=== PATIENT | male | born 1940 | race Caucasian/White ===

== ENCOUNTER 2019-04-12 19:29 | Emergency (ER) | payer MEDICARE ==
[2016-04-27 15:36] VITALS: Wt 97.5 kg
[~2019-04-12 19:29] MED LIST: ACE3 PO; ASPI-757 PO; BEN10 PO; CEP500 PO; HYDR-318 PO; LEVO50TA80 PO; LEVO75TA73 PO; [UNRECOGNIZED DRUG - OTHER] PO
--- NOTE | 2019-04-12 19:33 | ER Report ---
History and Physical Time Seen By MD: 19:30 HPI/ROS CHIEF COMPLAINT: Cough and slight shortness of breath HISTORY OF PRESENT ILLNESS: This is an 79-year-old male who presents to the emergency department for a cough and some shortness of breath. Patient states that he's had a cough over the last week progressively getting worse, it is productive. States that he's had some chills at home, subjectively has had fevers, states it was increasingly difficult to sleep last night because he was coughing which caused his shortness of breath. No history of asthma. No recent travel outside of this region. He denies chest pain. No nausea or vomiting. No rashes. No headache. REVIEW OF SYSTEMS: Constitutional: As above. Eyes: No discharge. ENT: No sore throat. Cardiovascular: No chest pain, no palpitations. Respiratory: As above. Gastrointestinal: No abdominal pain, no vomiting. Genitourinary: No hematuria. Musculoskeletal: No back pain. Skin: No rashes. Neurological: No headache. Allergies: Coded Allergies: No Known Drug Allergies (Unverified , 04/12/19) Home Meds Active Scripts Benzonatate (BENZONATATE) 200 Mg Capsule, 200 MG PO TID PRN for COUGH, #15 CAP Prov:АННА AMANDA [facility]- 04/12/19 Prednisone (PREDNISONE) 20 Mg Tablet, 20 MG PO BID, #10 TAB Prov:АННА AMANDA [facility]- 04/12/19 Azithromycin 250 Mg Tab (AZITHROMYCIN 250 MG TAB) 250 Mg Tablet, 1 TAB PO QDAY, #4 TAB 1 tab a day until gone. Prov:АННА AMANDA [facility] 04/12/19 Reported Medications Levothyroxine Sodium (LEVOTHYROXINE SODIUM) 75 Mcg Tablet, 75 MCG PO QDAY, TAB 04/20/16 Benazepril Hcl 10 MG TAB (Lotensin 10 MG TAB) 10 Mg Tab, 10 MG PO QDAY 09/24/12 Discontinued Reported Medications Hydrocodone/Acetaminophen (Lortab 7.5-325 mg Tablet) 1 Each Tablet, 1-2 TAB PO Q4-6H PRN for PAIN, #80 04/29/16 [Fe Gluconate] No Conflict Check, 375 MG PO BIDBS, #60 TAKE WITH FOOD 04/29/16 Discontinued Scripts Aspirin (ASPIRIN) 325 Mg Tablet, 325 MG PO QDAY, #0 Take for 30 days after surgery for blood clot prevention Prov:KRISTA SIMPSON MD 04/29/16 Past Medical/Surgical History The patient has a past medical and surgical history of hypothyroidism, wears glasses, hard hearing, hypertension, GERD, appendectomy, arthritis, clavicle f racture with surgery, skin cancer, squamous cell carcinoma with excision. Reviewed Nurses Notes: Yes Hx Smoking: No Smoking Status: Never Smoker Exposure to Second Hand Smoke?: No Hx Alcohol Use: Yes Constitutional Vital Sign - Last 24 Hours 04/12/19 04/12/19 04/12/19 04/12/19 19:35 19:44 19:56 19:56 Temp 98.3 Pulse 81 77 72 Resp 28 17 18 B/P (MAP) 148/78 Pulse Ox 91 86 89 O2 Delivery Room Air Room Air 04/12/19 04/12/19 04/12/19 04/12/19 19:59 20:00 20:02 20:14 Pulse 75 71 ??? Resp 24 18 23 B/P (MAP) 126/69 (88) Pulse Ox 96 91 04/12/19 04/12/19 04/12/19 04/12/19 20:29 20:30 20:44 20:45 Pulse 72 69 68 Resp 18 12 18 B/P (MAP) 123/62 (82) Pulse Ox 87 87 04/12/19 04/12/19 04/12/19 04/12/19 20:45 20:49 20:54 20:59 Pulse 68 70 75 Resp 14 12 34 Pulse Ox 89 98 98 89 O2 Delivery Room Air 04/12/19 04/12/19 04/12/19 21:00 21:03 21:04 Pulse 75 77 Resp 18 38 B/P (MAP) 111/72 (85) Intake and Output 04/12/19 04/12/19 04/13/19 15:01 23:01 07:01 Intake Total 1000 ml Balance 1000 ml Physical Exam General Appearance: The patient is alert, has no immediate need for airway protection and no signs of toxicity. Eyes: Pupils equal and round no pallor or injection. ENT, Mouth: Mucous membranes are moist. Respiratory: Diminished lung sounds throughout, an x-ray wheezes in the bases bilaterally, mildly coarse in the bases. Cardiovascular: Regular rate and rhythm. No murmurs, clicks or rubs. Gastrointestinal: Abdomen is soft and non tender, no masses, bowel sounds normal. Neurological: Alert and oriented 4. Moving all extremities. Following all commands. No focal neuro deficits. Skin: Warm and dry, no rashes. Musculoskeletal: Neck is supple non tender. Extremities are nontender, nonswollen and have full range of motion. DIFFERENTIAL DIAGNOSIS: After history and physical exam differential diagnosis was considered for bronchitis, pneumonia, pulmonary embolus, myocardial i nfarction, seasonal allergies, lung mass. Medical Decision Making Data Points Result Diagram: 04/12/19193704/12/191937 Laboratory Hematology Test 04/12/19 19:38 Red Blood Count 4.82 M/uL (4.00-5.60) Mean Corpuscular Volume 89.6 fL (80.0-96.0) Mean Corpuscular Hemoglobin 31.2 pg (26.0-33.0) Mean Corpuscular Hemoglobin Concent 34.8 g/dL (32.0-36.0) Red Cell Distribution Width 14.5 % (11.5-14.5) Mean Platelet Volume 7.9 fL (7.2-11.1) Neutrophils (%) (Auto) 66.2 % (39.4-72.5) Lymphocytes (%) (Auto) 23.4 % (17.6-49.6) Monocytes (%) (Auto) 6.7 % (4.1-12.4) Eosinophils (%) (Auto) 3.0 % (0.4-6.7) Basophils (%) (Auto) 0.7 % (0.3-1.4) Nucleated RBC Relative Count (auto) 0.1 /100WBC Neutrophils # (Auto) 5.7 K/uL (2.0-7.4) Lymphocytes # (Auto) 2.0 K/uL (1.3-3.6) Monocytes # (Auto) 0.6 K/uL (0.3-1.0) Eosinophils # (Auto) 0.3 K/uL (0.0-0.5) Basophils # (Auto) 0.1 K/uL (0.0-0.1) Nucleated RBC Absolute Count (auto) 0.01 K/uL Sodium Level 139 mmol/L (137-145) Potassium Level 4.5 mmol/L (3.5-5.0) Chloride Level 99 mmol/L (98-107) Carbon Dioxide Level 29 mmol/L (22-30) Blood Urea Nitrogen 21 mg/dl (9-21) Creatinine 1.40 mg/dl (0.66-1.25) Glomerular Filtration Rate Calc 48.6 Random Glucose 108 mg/dl (75-110) Calcium Level 9.0 mg/dl (8.4-10.2) Total Bilirubin 1.6 mg/dl (0.2-1.3) Aspartate Amino Transf (AST/SGOT) 32 U/L (0-35) Alanine Aminotransferase (ALT/SGPT) 37 U/L (0-56) Alkaline Phosphatase 71 U/L (0-126) Total Protein 7.5 g/dl (6.3-8.2) Albumin 4.4 g/dl (3.5-5.0) Chemistry Test 04/12/19 19:38 White Blood Count 8.6 k/uL (4.5-11.0) Red Blood Count 4.82 M/uL (4.00-5.60) Hemoglobin 15.0 g/dL (14.0-18.0) Hematocrit 43.2 % (42.0-52.0) Mean Corpuscular Volume 89.6 fL (80.0-96.0) Mean Corpuscular Hemoglobin 31.2 pg (26.0-33.0) Mean Corpuscular Hemoglobin Concent 34.8 g/dL (32.0-36.0) Red Cell Distribution Width 14.5 % (11.5-14.5) Platelet Count 214 K/uL (150-450) Mean Platelet Volume 7.9 fL (7.2-11.1) Neutrophils (%) (Auto) 66.2 % (39.4-72.5) Lymphocytes (%) (Auto) 23.4 % (17.6-49.6) Monocytes (%) (Auto) 6.7 % (4.1-12.4) Eosinophils (%) (Auto) 3.0 % (0.4-6.7) Basophils (%) (Auto) 0.7 % (0.3-1.4) Nucleated RBC Relative Count (auto) 0.1 /100WBC Neutrophils # (Auto) 5.7 K/uL (2.0-7.4) Lymphocytes # (Auto) 2.0 K/uL (1.3-3.6) Monocytes # (Auto) 0.6 K/uL (0.3-1.0) Eosinophils # (Auto) 0.3 K/uL (0.0-0.5) Basophils # (Auto) 0.1 K/uL (0.0-0.1) Nucleated RBC Absolute Count (auto) 0.01 K/uL Glomerular Filtration Rate Calc 48.6 Calcium Level 9.0 mg/dl (8.4-10.2) Total Bilirubin 1.6 mg/dl (0.2-1.3) Aspartate Amino Transf (AST/SGOT) 32 U/L (0-35) Alanine Aminotransferase (ALT/SGPT) 37 U/L (0-56) Alkaline Phosphatase 71 U/L (0-126) Total Protein 7.5 g/dl (6.3-8.2) Albumin 4.4 g/dl (3.5-5.0) EKG/Imaging EKG Interpretation 12 lead EKG: Time of EKG 1937. Rhythm: Sinus rhythm with a first-degree AV block, ventricular rate 76 bpm. NH interval 236. [place]: normal QRS: normal ST segments: No ST depression or elevation identified. Imaging PATIENT NAME: Jaime Quijano : 1940 MR: [id number] V: [id number] EXAM DATE: ORDERING PHYSICIAN: АННА AMANDA TECHNOLOGIST: Location: [facility] [place] Patient: Jaime Quijano : 1940 Visit/Account:[id number] Date of Sevice: 04/12/2019 2 VIEWS CHEST INDICATION: Cough and shortness breath for seven days. COMPARISON: 04/16/2016. FINDINGS: Cardiomediastinal silhouette and pulmonary vessels within normal limits. There is no focal infiltrate or lobar consolidation. There is no pneumothorax or pleural effusion. No nodule. Upper abdomen is unremarkable. No acute bony abnormality. Old right rib fractures. Previous internal fixation of the right clavicle fracture which is unchanged without acute sequelae. IMPRESSION: 1. No acute cardiopulmonary process. Report Dictated By: Porfirio Hunter at 04/12/2019 9:05 PM Report E-Signed By: Porfirio Hunter at 04/12/2019 9:06 PM WSN:[email or web address] ED Course/Re-evaluation Clinical Indication for ER IV: Hydration, IV Access ED Course The patient was admitted to room. A history and physical obtained. Differential diagnoses were considered. An IV was started. A CBC, CMP were obtained. A 1 L normal saline bolus was given. One DuoNeb was given, EKG showing sinus rhythm with 1st degree AV block otherwise unremarkable. Laboratory studies unremarkable. Although labs were normal, ekg normal and no concerning findings on your chest xray, the lungs sounds were very diminished and course, I am ayla ting for pneumonia. He was started on Azithromycin, prednisone and albuterol inhaler. Patient was agreeable with this plan of care and discharged home. Decision to Disposition Date: Apr 12, 2019 Decision to Disposition Time: 21:05 Depart Departure Latest Vital Signs Vital Signs Date Time Temp Pulse Resp B/P (MAP) Pulse Ox O2 Delivery O2 Flow Rate FiO2 04/12/19 21:04 77 38 04/12/19 21:00 111/72 (85) 04/12/19 20:59 89 04/12/19 20:45 Room Air 04/12/19 19:35 98.3 Impression: Primary Impression: Pneumonia Condition: Improved Disposition: HOME OR SELF-CARE Referrals: PASQUALE LE DO (PCP) 1 Week New Scripts Benzonatate (BENZONATATE) 200 Mg Capsule 200 MG PO TID PRN for COUGH, #15 CAP Prov: АННА AMANDAP- 04/12/19 Prednisone (PREDNISONE) 20 Mg Tablet 20 MG PO BID, #10 TAB Prov: АННА AMANDA [facility]- 04/12/19 Azithromycin 250 Mg Tab (AZITHROMYCIN 250 MG TAB) 250 Mg Tablet 1 TAB PO QDAY, #4 TAB 1 tab a day until gone. Prov: АННА AMANDA [facility]- 04/12/19 Patient Instructions: Bacterial Pneumonia (ED) Additional Instructions: As your symptoms have been getting worse, with some sweating at home, I am going to treat you for bacterial pneumonia. Take the medications as prescribed. Please follow up with your PCP first thing next week, Monday or Monday, for reevaluation. You will likely have a residual cough but should begin to improve in the next couple of days. Be sure to drink plenty of water. Get plenty of rest. Return to the ED for any other concerns or worsening symptoms. Problem Qualifiers Primary Impression: Pneumonia Pneumonia type: due to unspecified organism Laterality: unspecified laterality Lung location: unspecified part of lung Qualified Codes: J18.9 - Pneumonia, unspecified organism АННА AMANDA EXECUTIVE MEETING MANAGER-BC Apr 12, 2019 19:33
[2019-04-12] MEDS ORDERED: NS(*) 0.9% 1000 ML BAG 1,000 ML IV ONE (19:36)
[2019-04-12] MEDS ORDERED: ALBUTEROL/IPRATROPIUM 3 ML NEB NEB ONE ×2 (19:40→20:40)
--- NOTE | 2019-04-12 19:50 | EKG ---
[facility] PATIENT NAME: ADRIÁN SAMUELS : [id number] MR: [id number] V: [id number] EXAM DATE: ORDERING PHYSICIAN: АННА AMANDA TECHNOLOGIST: Test Reason : Blood Pressure : / mmHG Vent. Rate : 076 BPM Atrial Rate : 076 BPM P-R Int : 236 ms QRS Dur : 110 ms QT Int : 388 ms P-R-T Axes : -28 -61 059 degrees QTc Int : 436 ms Sinus rhythm with 1st degree AV block Left anterior fascicular block Abnormal ECG When compared with ECG of 16-APR-2016 08:56, No significant change was found Confirmed by FRANC MARIE ([id number]) on 04/13/2019 6:28:02 AM Referred By: Confirmed By:FRANC MARIE
[2019-04-12 19:54] LABS: PLATELET COUNT, AUTOMATED 214 K/uL (150-450)
[2019-04-12] MEDS ORDERED: methylPREDNIS SUCC 125 MG/2ML IVP ONE (20:00)
[2019-04-12] MEDS ORDERED: predniSONE 20 MG TAB PO ONE (20:40)
[2019-04-12] MEDS ORDERED: BENZONATATE 100 MG CAP PO ONE (20:40)
[2019-04-12] MEDS ORDERED: AZITHROMYCIN 250 MG TAB PO ONE (20:40)
[2019-04-12] MEDS ORDERED: ALBUTEROL 8 GM INHALER INH ONE (20:40)
[2019-04-12] MEDS ORDERED: PRED20TA6 PO (20:44)
[2019-04-12] MEDS ORDERED: AZIT-18 PO (20:44)
[2019-04-12] MEDS ORDERED: BENZ200C15 PO (20:44)
[2019-04-12] MEDS ORDERED: ACET/HYDROC 5/325MG TH ER ONLY 2 TAB/BOTTLE PO ONE (20:45)
[2019-04-12 21:00] VITALS: BP 111/72
--- NOTE | 2019-04-12 21:12 | RADIOLOGY IMAGING REPORT ---
FACILITY: [facility] [place] PATIENT NAME: Jaime Quijano : 1940 MR: [id number] V: [id number] EXAM DATE: ORDERING PHYSICIAN: АННА AMANDA TECHNOLOGIST: Location: [facility] [place] Patient: Jaime Quijano : 1940 Visit/Account:[id number] Date of Sevice: 04/12/2019 2 VIEWS CHEST INDICATION: Cough and shortness breath for seven days. COMPARISON: 04/16/2016. FINDINGS: Cardiomediastinal silhouette and pulmonary vessels within normal limits. There is no focal infiltrate or lobar consolidation. There is no pneumothorax or pleural effusion. No nodule. Upper abdomen is unremarkable. No acute bony abnormality. Old right rib fractures. Previous corporate communications intern al fixation of the right clavicle fracture which is unchanged without acute sequelae. IMPRESSION: 1. No acute cardiopulmonary process. Report Dictated By: Porfirio Hunter at 04/12/2019 9:05 PM Report E-Signed By: Porfirio Hunter at 04/12/2019 9:06 PM WSN:[id number]
== END 2019-04-12 21:17 | disposition home or self-care (01) ==
LOC: ER 19:37
DX: J18.9 Pneumonia, unspecified organism (principal)
CPT/HCPCS: 71046; 85025; 93005; 94640; 96361; 96374; 99284; A9270; J2930; J7030; J7512; J7620; Q0144; 82040; 82247; 82310; 82374; 82435; 82565; 82947; 84075; 84132; 84155; 84295; 84450; 84460; 84520